=== PATIENT | male | born 1960 | race Caucasian/White ===

== ENCOUNTER → 2016-12-08 | Outpatient (CLI) | payer BC ==
[2016-12-10 14:23] LABS: PSA % FREE 10.2 % (.); PSA FREE 0.47 ng/mL; PSA TOTAL 4.6 ng/mL (0.0-4.0)
== END ==
LOC: M LAB 16:03
PROVIDERS: ATTEND Family Medicine
DX: R97.20 Elevated prostate specific antigen [PSA] (principal)

== ENCOUNTER → 2017-01-13 | Outpatient (CLI) | payer BC ==
--- NOTE | 2017-01-13 16:29 | REP ---
Prostate sonography: History: Elevated PSA. Sonographic findings: Trans rectal prostate sonography demonstrates unremarkable seminal vesicles. Prostate gland is heterogeneously enlarged with calcifications and cystic changes noted. There is a 0.5 cm nodule. Glandular dimensions are measured at 4.3 x 3.3 x 5.0 cm with a calculated glandular volume of 41.0 ml. Transrectal sonographic guidance provided to Dr. Silver who performed trans rectal ultrasound guided needle biopsy procedure . Signed by Armond Meneses MD 01/13/2017 04:12 P
== END ==
LOC: M SMT PRO 08:24
PROVIDERS: ATTEND Nurse Practitioner Family
DX: R97.20 Elevated prostate specific antigen [PSA] (principal)
CPT/HCPCS: 55700; 76872; 76942; G0416